=== PATIENT | female | born 1950 | race Caucasian/White ===

== ENCOUNTER 2017-11-06 15:40 | Emergency (ER) | payer OTHER ==
[~2017-11-06] VITALS: Ht 167.6 cm; Wt 98.0 kg
[2017-11-06 15:45] VITALS: BP 158/89; PULSE 70; RESP 16; TEMP 98.2; O2SAT 98
[2017-11-06] MEDS ORDERED: TRAZ50TA12 PO (15:59)
[2017-11-06] MEDS ORDERED: WARF4TAB51 PO (15:59)
[2017-11-06] MEDS ORDERED: WARF-20 PO (15:59)
[2017-11-06] MEDS ORDERED: FLUO-1 PO (16:00)
[2017-11-06] MEDS ORDERED: CYCL5TAB PO ×2 (16:00→18:39)
[2017-11-06] MEDS ORDERED: BP med (16:00)
[2017-11-06] MEDS ORDERED: LOSA50TA PO (16:05)
[2017-11-06] MEDS ORDERED: SODIUM CHLOR 0.9% 1000 ML INJ 1,000 ML IV SCH (16:23)
--- NOTE | 2017-11-06 16:27 | PD ---
HPI Chief Complaint: Abdominal Pain Time Seen by Provider: 16:23 Travel History International Travel<30 days: No Contact w/Intl Traveler<30days: No Traveled to known affect area: No History of Present Illness HPI Patient presents with complaints of intermittent left lower abdominal pain over the last 7 months. States that over the last 3-4 days it has persisted and is slightly worse. Denies any chest pain or shortness of breath. Denies any urinary or bowel symptoms. Denies any history of diverticulosis or diverticulitis. Denies any history of kidney stones. Denies nausea or vomiting. History of hysterectomy and right sided hernia repair. Additionally complains of some lower back pain. PFSH Past Medical History Depression: Yes Cancer: Yes (cervical) Cardiovascular Problems: Yes (ARTIFICIAL HEART VALVE) Diminished Hearing: No Hypertension: Yes Insomnia: Yes Tetanus Vaccination: Unknown Influenza Vaccination: Yes ?: Not Past Surgical History Cardiac Surgery: Yes (valve replacement) Hysterectomy: Yes Social History Alcohol Use: No Tobacco Use: No Substance Use: No Allergies-Medications (Allergen,Severity, Reaction): Coded Allergies: No Known Allergies (Unverified , 11/06/17) Reported Meds & Prescriptions Reported Meds & Active Scripts Active Reported Losartan (Losartan Potassium) 50 Mg Tab 50 Mg PO DAILY Prozac (Fluoxetine HCl) 10 Mg Cap 10 Mg PO DAILY Flexeril (Cyclobenzaprine HCl) 5 Mg Tab 5 Mg PO TID Trazodone (Trazodone HCl) 50 Mg Tab 50 Mg PO HS Warfarin 4 Mg Tab 4 Mg PO MO,,,SA,SAL Warfarin 2 Mg Tab 2 Mg PO ,FR Review of Systems General / Constitutional: No: Fever Eyes: No: Visual changes HENT: No: Headaches Cardiovascular: No: Chest Pain or Discomfort Respiratory: No: Shortness of Breath Gastrointestinal: Positive: Nausea, Abdominal Pain Genitourinary: No: Dysuria Musculoskeletal: No: Pain Skin: No Rash Neurologic: No: Weakness Psychiatric: No: Depression Endocrine: No: Polydipsia Hematologic/Lymphatic: No: Easy Bruising Physical Exam Narrative GENERAL: Well-nourished, well-developed patient. SKIN: Focused skin assessment warm/dry. HEAD: Normocephalic. EYES: No scleral icterus. No injection or drainage. NECK: Supple, trachea midline. No JVD or lymphadenopathy. CARDIOVASCULAR: Regular rate and rhythm without murmurs, gallops, or rubs. RESPIRATORY: Breath sounds equal bilaterally. No accessory muscle use. GASTROINTESTINAL: Abdomen soft, diffusely tender left lower quadrant, nondistended. MUSCULOSKELETAL: No cyanosis, or edema. BACK: Nontender without obvious deformity. No CVA tenderness. Examination lumbar sacral spine reveals no midline tenderness with mild bilateral paraspinous pain Data Data Last Documented VS Vital Signs Date Time Temp Pulse Resp B/P (MAP) Pulse Ox O2 Delivery O2 Flow Rate FiO2 11/06/17 17:02 64 18 172/59 (96) 96 Room Air 11/06/17 15:45 98.2 Orders Orders Complete Blood Count With Diff (11/06/17 16:23) Comprehensive Metabolic Panel (11/06/17 16:23) Lipase (11/06/17 16:23) Lactic Acid (11/06/17 16:23) Urinalysis - C+S If Indicated (11/06/17 16:23) Ct Abd/Pel W Iv Contrast(Rout) (11/06/17 16:23) Iv Access Insert/Monitor (11/06/17 16:23) Ecg Monitoring (11/06/17 16:23) Oximetry (11/06/17 16:23) NPO (11/06/17 16:23) Ondansetron Inj (Zofran Inj) (11/06/17 16:30) Sodium Chlor 0.9% 1000 Ml Inj (Ns 1000 M (11/06/17 16:23) Sodium Chloride 0.9% Flush (Ns Flush) (11/06/17 16:30) Iodixanol 320 Inj (Rad Ct) (Visipaque 32 (11/06/17 17:47) Labs Laboratory Tests Test 11/06/17 16:30 11/06/17 16:40 Urine Collection Type CLEAN CATCH Urine Color YELLOW Urine Turbidity CLEAR Urine pH 6.0 Urine Specific [place] 1.018 Urine Protein NEG mg/dL Urine Glucose (UA) NEG mg/dL Urine Ketones NEG mg/dL Urine Occult Blood TRACE Urine Nitrite NEG Urine Bilirubin NEG Urine Leukocyte Esterase NEG Urine RBC 4-9 /hpf Urine Squamous Epithelial Cells 0-5 /hpf Microscopic Urinalysis Comment CULT NOT INDICATED Urine Collection Time 16:30 White Blood Count 8.1 TH/MM3 Red Blood Count 4.12 MIL/MM3 Hemoglobin 11.3 GM/DL Hematocrit 35.3 % Mean Corpuscular Volume 85.8 FL Mean Corpuscular Hemoglobin 27.4 PG Mean Corpuscular Hemoglobin Concent 31.9 % Red Cell Distribution Width 14.2 % Platelet Count 251 TH/MM3 Mean Platelet Volume 9.2 FL Neutrophils (%) (Auto) 64.2 % Lymphocytes (%) (Auto) 23.9 % Monocytes (%) (Auto) 6.7 % Eosinophils (%) (Auto) 4.4 % Basophils (%) (Auto) 0.8 % Neutrophils # (Auto) 5.2 TH/MM3 Lymphocytes # (Auto) 1.9 TH/MM3 Monocytes # (Auto) 0.5 TH/MM3 Eosinophils # (Auto) 0.4 TH/MM3 Basophils # (Auto) 0.1 TH/MM3 CBC Comment DIFF FINAL Differential Comment Blood Urea Nitrogen 18 MG/DL Creatinine 1.50 MG/DL Random Glucose 85 MG/DL Total Protein 7.2 GM/DL Albumin 3.3 GM/DL Calcium Level 8.6 MG/DL Alkaline Phosphatase 113 U/L Aspartate Amino Transf (AST/SGOT) 21 U/L Alanine Aminotransferase (ALT/SGPT) 19 U/L Total Bilirubin 0.3 MG/DL Sodium Level 141 MEQ/L Potassium Level 3.8 MEQ/L Chloride Level 107 MEQ/L Carbon Dioxide Level 26.7 MEQ/L Anion Gap 7 MEQ/L Estimat Glomerular Filtration Rate 35 ML/MIN Lactic Acid Level 1.1 mmol/L Lipase 200 U/L MDM Medical Decision Making Medical Screen Exam Complete: Yes Emergency Medical Condition: Yes Differential Diagnosis Diverticulitis, colitis, UTI Narrative Course Assessment and plan discussed with patient and daughter at bedside. Labs within normal limits. CT without any acute intra-abdominal process. Diagnosis Primary Impression: Abdominal pain Qualified Codes: R10.32 - Left lower quadrant pain Additional Impression: Lumbago Qualified Codes: M54.5 - Low back pain Patient Instructions: General Instructions Additional Instructions: Encourage nonsteroidal anti-inflammatories warm heat gentle stretching and strengthening and massage for her back. Pain medication and muscle relaxer as needed. Prophylactic treatment for left lower quadrant pain. Encouraged to follow-up with PCP/GI to discuss colonoscopy. Return to emergency room with any onset of new symptoms. Med/Other Pt SpecificInfo: Prescription(s) given Scripts Metronidazole (Flagyl) 500 Mg Tab 500 MG PO BID for Infection for 7 Days, #14 TAB 0 Refills Prov: Regulo Llamas MD 11/06/17 Ciprofloxacin (Cipro) 500 Mg Tab 500 MG PO BID for Infection for 7 Days, #14 TAB 0 Refills Prov: Regulo Llamas MD 11/06/17 Hydrocodone-Acetaminophen (Hydrocodone-Acetaminophen) 5-325 mg Tab 0.5-1 TAB PO Q6H Y for PAIN, #15 TAB 0 Refills Prov: Regulo Llamas MD 11/06/17 Cyclobenzaprine (Flexeril) 5 Mg Tab 5 MG PO TID for Muscle Spasm, #20 TAB 0 Refills Prov: Regulo Llamas MD 11/06/17 Disposition: 01 DISCHARGE HOME Condition: Good Regulo Llamas MD Nov 06, 2017 16:27
[2017-11-06] MEDS ORDERED: ONDANSETRON HCL 4 MG/2 ML VIAL IVP ONE (16:30)
[2017-11-06] MEDS ORDERED: SODIUM CHLORIDE 0.9% FLUSH 10 ML FLUSH IV FLUSH PRN (16:30)
[2017-11-06 16:56] LABS: BILIRUBIN, URINE NEG (NEG); BLOOD, URINE TRACE (NEG); GLUCOSE,URINE NEG (NEG); KETONE, URINE NEG (NEG); NITRITE,URINE NEG (NEG); URINE LEUKOCYTE ESTERASE NEG (NEG)
[2017-11-06 16:57] VITALS: O2SAT 96
[2017-11-06 16:58] LABS: AUTOMATED NEUTROPHIL # 5.2 TH/MM3 (1.8-7.7); BASOPHIL # 0.1 TH/MM3 (0-0.2); BASOPHIL % 0.8 % (0.0-2.0); EOSINOPHIL # 0.4 TH/MM3 (0-0.4); EOSINOPHIL % 4.4 % (0.0-4.0); HEMATOCRIT 35.3 % (35.0-46.0); HEMOGLOBIN 11.3 GM/DL (11.6-15.3); LYMPH % 23.9 % (9.0-44.0); LYMPHOCYTE # 1.9 TH/MM3 (1.0-4.8); MEAN CELL VOLUME 85.8 FL (80.0-100.0); MEAN CORPUSCULAR HEMOGLOBIN 27.4 PG (27.0-34.0); MEAN CORPUSCULAR HGB CONC 31.9 % (32.0-36.0); MEAN PLATELET VOLUME 9.2 FL (7.0-11.0); MONO % 6.7 % (0.0-8.0); MONOCYTE # 0.5 TH/MM3 (0-0.9); NEUT % 64.2 % (16.0-70.0); PLATELET COUNT 251 TH/MM3 (150-450); RED BLOOD COUNT 4.12 MIL/MM3 (4.00-5.30); RED CELL DISTRIBUTION WIDTH 14.2 % (11.6-17.2); WHITE BLOOD COUNT 8.1 TH/MM3 (4.0-11.0)
[2017-11-06 17:02] VITALS: BP 172/59; PULSE 64; RESP 18; O2SAT 96
[2017-11-06 17:03] LABS: SQUAMOUS EPITHELIAL CELL URINE 0-5 /hpf (0-5); URINE COLOR YELLOW (YELLW/STRAW)
[2017-11-06 17:14] LABS: CHLORIDE 107 MEQ/L (98-107); SODIUM (NA) 141 MEQ/L (136-145)
[2017-11-06 17:18] LABS: ALBUMIN 3.3 GM/DL (3.4-5.0); BICARBONATE 26.7 MEQ/L (21.0-32.0); CALCIUM 8.6 MG/DL (8.5-10.1); GLUCOSE,RANDOM 85 MG/DL (74-106); LIPASE 200 U/L (73-393)
[2017-11-06 17:19] LABS: BLOOD UREA NITROGEN 18 MG/DL (7-18)
[2017-11-06 17:21] LABS: ALT (GPT) 19 U/L (10-53); AST (GOT) 21 U/L (15-37); GLOMERULAR FILTRATION RATE 35 ML/MIN (>89)
[2017-11-06 17:23] LABS: TOTAL BILIRUBIN ADULT 0.3 MG/DL (0.2-1.0); TOTAL PROTEIN 7.2 GM/DL (6.4-8.2)
[2017-11-06 17:24] LABS: ALKALINE PHOSPHATASE 113 U/L (45-117)
[2017-11-06] MEDS ORDERED: IODIXANOL 320 MG/ML 10 ML VIAL (for Rad CT) IVCONTRAST ONE (17:47)
--- NOTE | 2017-11-06 18:21 | RADRPT ---
EXAM DATE/TIME: 11/06/2017 17:33 [facility] COMPARISON: No previous studies available for comparison. INDICATIONS : Left lower abdominal pain. IV CONTRAST: 50 cc Visipaque (iodixanol) IV ORAL CONTRAST: No oral contrast ingested. RADIATION DOSE: 21.06 CTDIvol (mGy) MEDICAL HISTORY : Cardiovascular disease. Cervical ca, SURGICAL HISTORY : Hysterectomy. Hernia right side, Heart valve ENCOUNTER: Initial ACUITY: 4 - 6 days PAIN SCALE: 7/10 LOCATION: Left lower quadrant TECHNIQUE: Volumetric scanning of the abdomen and pelvis was performed. Using automated exposure control and ad justment of the mA and/or kV according to patient size, radiation dose was kept as low as reasonably achievable to obtain optimal diagnostic quality images. DICOM format image data is available electro nically for review and comparison. FINDINGS: LOWER LUNGS: The visualized lower lungs are clear. LIVER: Homogeneous density without lesion. There is no dilation of the biliary tree. No calcified gallston es. SPLEEN: Normal size without lesion. PANCREAS: Within normal limits. KIDNEYS: Normal in size and shape. There is no mass, stone or hydronephrosis. ADRENAL GLANDS: Within normal limits. VASCULAR: There is no aortic aneurysm. BOWEL/MESENTERY: Scattered colonic diverticula. No evidence of acute diverticulitis. Appendix not identified. No bowel dilatation. No free air or free fluid. ABDOMINAL WALL: Within normal limits. RETROPERITONEUM: There is no lymphadenopathy. BLADDER: No wall thickening or mass. REPRODUCTIVE: Surgical clips bilaterally in the pelvis. Uterus and ovary are nonvisualized. INGUINAL: There is no lymphadenopathy or hernia. MUSCULOSKELETAL: Within normal limits for patient age. CONCLUSION: 1. Post surgical findings in the pelvis suggesting prior hysterectomy and possible bilateral oophorec mata. 2. Colonic diverticulosis but no evidence of acute diverticulitis. 3. No acute findings in the abdomen and pelvis. Rick Winn MD on November 06, 2017 at 18:16 Board Certified Radiologist. This report was verified electronically.
[2017-11-06 18:34] VITALS: BP 156/84; PULSE 64; RESP 18; O2SAT 98
[2017-11-06] MEDS ORDERED: HYDR-3516 PO (18:39)
[2017-11-06] MEDS ORDERED: CIPR-9 PO (18:39)
[2017-11-06] MEDS ORDERED: METR-1 PO (18:39)
== END 2017-11-06 18:53 | disposition home or self-care (01) ==
LOC: PHED 15:40
DX: R10.32 Left lower quadrant pain (principal); M54.5 Low back pain; I10 Essential (primary) hypertension
CPT/HCPCS: 74177; 80053; 81001; 83605; 83690; 85025; 96361; 96374; 99285; J2405; J7030; Q9967